=== PATIENT | male | born 1950 | race Two or more races ===

== ENCOUNTER 2023-10-19 07:21 | Day surgery (SDC) | payer OTHER ==
[2023-10-19] MEDS ORDERED: FLUMAZENIL 0.5 MG/5 ML ML IV STA (14:12)
[2023-10-19] MEDS ORDERED: DIPHENHYDRAMINE HCL 50 MG/ML VIAL 1ML IV ONE (14:15)
[2023-10-19] MEDS ORDERED: MIDAZOLAM HCL 2 MG/2 ML VIAL IV ONE (14:15)
[2023-10-19] MEDS ORDERED: fentaNYL CITRATE 50 MCG/ML AMPUL IV PUSH ONE (14:15)
[2023-10-19] MEDS ORDERED: ONDANSETRON HCL 2 MG/ML VIAL IV ONE (14:15)
== END 2023-10-19 15:45 | disposition home or self-care (01) ==
LOC: AMB-ENDOS 07:21
PROVIDERS: ATTEND Colon & Rectal Surgery
DX: D12.4 Benign neoplasm of descending colon (principal); D12.0 Benign neoplasm of cecum; D12.2 Benign neoplasm of ascending colon; D12.3 Benign neoplasm of transverse colon; K63.5 Polyp of colon